=== PATIENT | female | born 1960 | race Caucasian/White ===

== ENCOUNTER → 2016-06-29 | Outpatient (CLI) | payer OTHER ==
[~2016-06-29] MED LIST: ACETAMINOPHEN500 M5 PO; ALBUTEROL17 GM INH; CYMBALTA PO; DULERA 100 MCG/13 GM IH; DULOXETINE HCL60 MG PO; DUONEB 2.5-0.5 M3 ML NEB; FERRO-TIME325 MG PO; GLUCOPHAGE500 M1 PO; HYDROCODON-ACE1 EAC7 PO; KLONOPIN PO; KLONOPIN2 MG PO; LAMICTAL PO; LOPRESSOR PO; METFORMIN; PRAVASTATIN SOD20 MG PO; PRAVASTATIN SOD40 MG PO; PRILOSEC PO; PRILOSEC20 M1 PO; QUETIAPINE FUM200 MG PO; RELAFEN500 MG PO; SEROQUEL XR200 MG PO; SYMBICORT; SYMBICORT INH; TOPROL XL50 MG PO; TRIAMTERENE-HC1 EAC1 PO; VOLTAREN75 MG PO; ZITHROMAX PO; [UNRECOGNIZED DRUG - REMARK] PO
--- NOTE | ~2016-06-29 | CT138 ---
[facility] A Service of [facility] RADIOLOGY TEXT RESULTS PATIENT: JIM NI LOCATION: [facility] : 62 UNIT #: [id number] AGE: [address]: Margarita Park MD SEX: F ORDER DR: [id number] [place] [id number] O MR#: [id number] Acc #: [id number] NAME: JIM NI : 1960 SEX: F STUDY DATE/TIME: 06/29/2016 12:50 UNIT: [facility] ROOM: STUDY DESCRIPTION: CT Lung screening initial Attending Physician: Margarita Park M.D. Referring Physician: Margarita Park M.D. Ordering Physician: Margarita Park M.D. Primary Care Physician: Margarita Park M.D. MEDICAL IMAGING REPORT This report is preliminary unless electronic signature is present. EXAM CT lung cancer screening INDICATION Lung cancer screening. 41-pack year smoking history. PROCEDURE Unenhanced low-dose CT of the chest performed per lung cancer screening protocol. CTDI 2.96 mGy. Total DLP 121 mGy-cm. COMPARISON None. TECHNIQUE This CT examination was performed with one or more of the following radiation dose reduction techniques: automatic exposure control, adjustment of mA and/or kV according to patient size, and iterative reconstruction. FINDINGS No suspicious pulmonary nodule. There are a few areas of linear scarring. No pleural fluid or pneumothorax. No adenopathy. Coronary artery calcification. No acute findings in the included upper abdomen. No aggressive appearing bone lesion. IMPRESSION 1. No suspicious pulmonary nodule. 2. Lung-RADS category 1, negative. Per the ACR Lung-RADS recommendations, suggest patient continue with annual low-dose lung cancer screening. Dictated by... [facility] A Service [facility] RADIOLOGY TEXT RESULTS PATIENT: JIM NI LOCATION: [facility] : 62 UNIT #: [id number] AGE: [address]: Margarita Park MD SEX: F ORDER DR: Geovanny Conde M.D. THIS IS AN ELECTRONICALLY VERIFIED REPORT Geovanny Conde M.D. at 07/02/2016 7:11 AM ANEUDY/dipika TD: 07/01/2016 10:16 JOB #: [id number] MEDICAL IMAGING REPORT Page 1 of 1
== END | disposition home or self-care (01) ==
LOC: SCT 12:39
DX: F17.210 Nicotine dependence, cigarettes, uncomplicated (principal)
CPT/HCPCS: G0297

== ENCOUNTER → 2016-11-26 | Outpatient (CLI) | payer OTHER ==
--- NOTE | ~2016-11-26 | MY29 ---
[facility] A Service of [facility] RADIOLOGY TEXT RESULTS PATIENT: JIM NI LOCATION: [facility] : 62 UNIT #: [id number] AGE: [address]: Margarita Park MD SEX: F ORDER DR: [id number] [facility] [address] [place], [place] [address] [id number] O MR#: [id number] Acc #: [id number] NAME: JIM NI : 1960 SEX: F STUDY DATE/TIME: 11/26/2016 12:14 UNIT: [facility] ROOM: STUDY DESCRIPTION: MY CLARISSA SCREENING W/ CAD BILAT Attending Physician: Margarita Park M.D. Referring Physician: Margarita Prak M.D. Ordering Physician: Margarita Park M.D. Primary Care Physician: Margarita Park M.D. MEDICAL IMAGING REPORT This report is preliminary unless electronic signature is present EXAM Digital screening mammogram 11/26/2016 HISTORY 56-year-old woman, bruising upper inner quadrant left breast. No risk elevation. Annual screen. COMPARISON Mammograms date to 02/07/2010 with most recent 08/24/2015. Follow-up diagnostic left mammogram 09/01/2015, 03/11/2016. Left breast ultrasound 09/01/2015. FINDINGS Digital imaging of each breast was completed utilizing screening protocol. Marker is placed at the site of a left breast bruising. Breast parenchyma is predominantly fatty replaced. Slight increase in parenchymal density corresponds to the area of bruising left breast. Occasional benign calcification in each breast. I see no suspicious mass. There are no interval occurring microcalcifications and no architectural deformity. IMPRESSION Negative mammogram. Annual screening recommended. Patients over the age of 40 are entered into a reminder system with target due date for the next mammogram. A result letter will also be sent to the patient. BIRADS: 1, negative. [facility] A Service of [facility] RADIOLOGY TEXT RESULTS PATIENT: JIM NI LOCATION: [facility] : 62 UNIT #: [id number] AGE: [address]: Margarita Park MD SEX: F ORDER DR: Dictated by... Benoit Weaver M.D. THIS IS AN ELECTRONICALLY VERIFIED REPORT Benoit Weaver M.D. at 11/27/2016 8:18 AM MARIA ISABEL/lucia TD: 11/26/2016 17:13 JOB #: [id number] MEDICAL IMAGING REPORT Page 1 of 1 COPY
== END | disposition home or self-care (01) ==
LOC: CWCC 11:50
DX: Z12.31 Encounter for screening mammogram for malignant neoplasm of breast (principal)
CPT/HCPCS: G0202